=== PATIENT | female | born 1990 | race Caucasian/White ===

== ENCOUNTER 2017-08-19 23:00 | Emergency (ER) | payer OTHER ==
[~2017-08-19] VITALS: Ht 157.5 cm; Wt 52.2 kg
[2017-08-19 23:05] VITALS: BP 138/90
--- NOTE | 2017-08-19 23:10 | NUR ---
PATIENT AMBULATED TO ER BED 5.
--- NOTE | 2017-08-19 23:15 | NUR ---
PATIENT IS A 26 Y/O FEMALE WHO PRESENTS TO THE ED C/O HEADACHE. PT STATES THAT IT STARTED YESTERDAY AND TOOK A MOTRIN WITH NO RELIEF. PT REPORTS 10/10 ACHING FRONTAL HEADACHE PAIN THAT DOES NOT RADIATE. PT DENIES CP, SOB, REPORTS NAUSEA/VOMITING DENIES DIARRHEA. PT AAOX4, RR EVEN/UNLABORED. PT REPOSITIONED FOR COMFORT, BED IN LOWEST POSITION. ER MD DR. CROOKS NOTIFIED. WILL CONTINUE TO MONITOR.
[2017-08-19] MEDS ORDERED: NACL 0.9% 1,000 ML IV ONE (23:43)
[2017-08-19] MEDS ORDERED: KETOROLAC 30 MG/ML VIAL IVP ONE (23:45)
[2017-08-19] MEDS ORDERED: METOCLOPRAMIDE 10 MG/2 ML INJ VIAL IVP ONE (23:45)
[2017-08-19] MEDS ORDERED: diphenhydrAMINE 50 MG/ML VIAL IVP ONE (23:45)
[2017-08-19 23:48] LABS: APPEARANCE,URINE CLEAR (CLEAR); BILIRUBIN,URINE NEGATIVE (NEGATIVE); BLOOD, URINE NEGATIVE (NEGATIVE); COLOR,URINE YELLOW (YELLOW); LEUKOCYTE ESTERASE ,URINE 3+ (NEGATIVE); NITRITE, URINE NEGATIVE (NEGATIVE); PH,URINE 7.5 (5.0-9.0); UGLUCOSE NEGATIVE (NEGATIVE)
[2017-08-19 23:58] LABS: RBC,URINE 0-5 (RARE) /HPF (0-5); WBC,URINE 20-60 /HPF (0-5)
--- NOTE | 2017-08-20 00:30 | NUR ---
PT RESTING IN BED COMFORTABLY NO S/S OF DISTRESS NOTED. VSS
--- NOTE | 2017-08-20 01:34 | NUR ---
Patient discharged with v/s stable. Written and verbal after care instructions given and explained. Patient alert, oriented and verbalized understanding of instructions. Ambulatory with steady gait. All questions addressed prior to discharge. ID band removed. Patient advised to follow up with PMD. Rx of REGLAN 5MG AND FIORICET [id number] given. Patient educated on indication of medication including possible reaction and side effects. Opportunity to ask questions provided and answered.
[2017-08-20 01:35] VITALS: BP 118/72
== END 2017-08-20 01:34 | disposition home or self-care (01) ==
LOC: MED 23:00
DX: R51 Headache (principal); H53.8 Other visual disturbances; R11.2 Nausea with vomiting, unspecified; G43.909 Migraine, unspecified, not intractable, without status migrainosus; Z90.89 Acquired absence of other organs; Z88.0 Allergy status to penicillin
CPT/HCPCS: 81001; 81025; 87086; 96361; 96374; 96375; 99284; J1200; J1885; J2765; J7030

== ENCOUNTER 2017-10-22 01:40 | Emergency (ER) | payer OTHER ==
[~2017-10-22] VITALS: Ht 157.5 cm; Wt 54.2 kg
--- NOTE | 2017-10-22 01:57 | NUR ---
PT TAKEN TO BED 11
[2017-10-22 01:58] VITALS: BP 121/79
[2017-10-22] MEDS ORDERED: FIO PO (02:01)
[2017-10-22] MEDS ORDERED: MID5 PO (02:01)
[2017-10-22] MEDS ORDERED: RIZA10TA16 PO (02:01)
--- NOTE | 2017-10-22 02:01 | NUR ---
26/F presents to ED with complaints of headache for the past 3 days. Patient states "I have migraines." Patient has prescribed medications she states are not helping. Pt c/o left frontal 9/10 pain. Denies N/V. AOX4, clear speech. VSS. NAD noted. Pt appears comfortable, boyfriend with patient.
--- NOTE | 2017-10-22 02:07 | NUR ---
Patient being evaluated by physician at bedside.
--- NOTE | 2017-10-22 02:07 | NUR ---
Lucie siu in [facility] - 10/22/17 at [address] Tran evaluating patient at bedside.
[2017-10-22] MEDS ORDERED: PROCHLORPERAZINE 10 MG/2 ML VIAL IVP ONE (02:10)
[2017-10-22] MEDS ORDERED: diphenhydrAMINE 50 MG/ML VIAL IVP ONE (02:10)
[2017-10-22] MEDS ORDERED: NACL 0.9% 1,000 ML IV ONE (02:10)
--- NOTE | 2017-10-22 02:54 | NUR ---
Patient resting quietly and comfortably in bed. IV fluids infusing. Boyfriend at bedside. NAD noted. Lights dimmed in room. Warm blanket provided.
--- NOTE | 2017-10-22 03:06 | NUR ---
IV removed, catheter intact and site benign. Applied folded 4x4 gauze and tape to stop bleeding.
[2017-10-22 03:07] VITALS: BP 112/80
--- NOTE | 2017-10-22 03:07 | NUR ---
Patient discharged with v/s stable. Written and verbal after care instructions given and explained. Patient verbalized understanding. Ambulatory with steady gait. All questions addressed prior to discharge. Advised to follow up with PMD.
== END 2017-10-22 03:07 | disposition home or self-care (01) ==
LOC: MED 01:40
DX: G43.909 Migraine, unspecified, not intractable, without status migrainosus (principal); Z88.0 Allergy status to penicillin; Z79.899 Other long term (current) drug therapy
CPT/HCPCS: 81025; 96361; 96374; 96375; 99284; J0780; J1200; J7030

== ENCOUNTER 2020-06-21 01:00 | Emergency (ER) | payer OTHER ==
[~2020-06-21] VITALS: Ht 157.5 cm; Wt 63.5 kg
[~2020-06-21 01:00] MED LIST: FIO PO; MID5 PO; RIZA10TA16 PO
[2020-06-21 01:14] VITALS: BP 113/66
--- NOTE | 2020-06-21 01:43 | NUR ---
29 Y/O FEMALE PRESENTED TO ED C/O UPPER BACK PAIN X 1 DAY. PT DESCRIBES IT SHARP UPPER BACK PAIN THAT INCREASES UPON INSPIRATION. RR EVEN AND UNLABORED. OXYGEN 99% , BL LUNG SOUNDS CLEAR THROUGHOUT. PT HAD A VAGINAL X 5 DAYS AGO BUT STATES THERE WERE NO COMPLICATIONS BUT SHE DID RECEIVE AN EPIDURAL. PT DENIES ANY FEVER, BODY ACHES, CHILLS , N/V/D. PT RESTING IN BED, LOCKED AND IN LOWEST POSITION, HOB ELEVATED, SIDE RAIL X 1. VSS. NO ACUTE DISTRESS NOTED. PMH: DENIES AX: PCN Addendum: 06/21/20 at 0300 by [email or web address] Patient also complaining of non-radiating sharp chest pain x 1 day. VSS
--- NOTE | 2020-06-21 02:15 | NUR ---
ERMD at bedside assessing patient.
[2020-06-21] MEDS ORDERED: ACETAMINOPHEN 325 MG TAB PO ONE (02:25)
[2020-06-21] MEDS ORDERED: NACL 0.9% 1,000 ML IV ONE (02:30)
[2020-06-21 02:38] LABS: BASOPHILS % (AUTO) 0.2 % (0.0-2.0); EOSINOPHILS # (AUTO) 0.1 K/uL (0-0.4); EOSINOPHILS % (AUTO) 1.9 % (0.0-4.0); HEMATOCRIT 35.4 % (36-48); HEMOGLOBIN 11.8 g/dL (12.0-16.0); LYMPHOCYTES # (AUTO) 2.2 K/uL (2.5-16.5); MEAN CORPUSCULAR HEMOGLOBIN 28 pg (27-31); MEAN CORPUSCULAR HGB CONC 33 g/dL (33-37); MEAN CORPUSCULAR VOLUME 84.3 fL (80-94); MONOCYTES # (AUTO) 0.7 K/uL (0.8-1.0); MONOCYTES % (AUTO) 8.4 % (1.7-9.3); NEUTROPHILS # (AUTO) 4.8 K/uL (1.8-7.7); NEUTROPHILS % (AUTO) 61.5 % (42.2-75.2); PLATELET COUNT (AUTO) 278 K/uL (140-450); RED CELL DISTRIBUTION WIDTH 15.3 % (11.6-13.7); WHITE BLOOD COUNT (AUTO) 7.8 K/uL (4.8-10.8)
[2020-06-21 02:46] LABS: ANION GAP 11.1 (8-16); CARBON DIOXIDE 27.8 mmol/L (21-32); CREATININE 0.7 mg/dL (0.6-1.3); POTASSIUM 3.9 mmol/L (3.5-5.1)
--- NOTE | 2020-06-21 02:47 | NUR ---
EKG PERFORMED AT BEDSIDE. EKG READS SINUS RHYTHM @ 79
[2020-06-21 03:39] LABS: PROTHROMBIN TIME 9.2 secs (10.8-13.4)
--- NOTE | 2020-06-21 04:15 | NUR ---
PT OFF TO CT
--- NOTE | 2020-06-21 04:50 | NUR ---
Patient back from CT. Addendum: 06/21/20 at 0515 by [email or web address] audis
[2020-06-21 06:06] VITALS: BP 104/63
== END 2020-06-21 06:06 | disposition home or self-care (01) ==
LOC: MED 01:00
DX: R09.1 Pleurisy (principal); R07.89 Other chest pain; M54.6 Pain in thoracic spine; Z88.0 Allergy status to penicillin; Z79.899 Other long term (current) drug therapy
CPT/HCPCS: 36415; 71045; 71275; 80048; 84484; 85025; 85379; 85610; 85730; 93005; 96360; 99285; J7030; Q9967

== ENCOUNTER 2021-05-05 06:08 | Emergency (ER) | payer OTHER ==
[~2021-05-05] VITALS: Ht 157.5 cm; Wt 52.2 kg
[2021-05-05 06:12] VITALS: BP 104/75
--- NOTE | 2021-05-05 06:12 | NUR ---
"i woke up at 0330 and the room was spinning. i'm scared"VOMITING X 5 IN LAST 2 HOURS. PT IS , LMP 02/24/21
--- NOTE | 2021-05-05 06:15 | NUR ---
TO BED 5, AMBULATORY, FROM TRIAGE
[2021-05-05] MEDS ORDERED: ONDANSETRON 4 MG ODT PO ONE (06:30)
[2021-05-05] MEDS ORDERED: PYRIDOXINE 50 MG TAB PO ONE (06:40)
[2021-05-05] MEDS ORDERED: METOCLOPRAMIDE 10 MG TAB PO ONE (06:40)
--- NOTE | 2021-05-05 07:15 | NUR ---
MEDICATED ORDERED. NO FURTHER VOMITING NOTED
--- NOTE | 2021-05-05 07:53 | NUR ---
PATIENT PROVIDED W/ URINE CUP AT BEDSIDE, PATIENT WILL PROVIDE URINE SAMPLE AT THIS TIME.
--- NOTE | 2021-05-05 08:07 | NUR ---
URINE SPECIMEN COLLECTED AND DIPPED, RESULTS HANDED TO DR. CAPONE
--- NOTE | 2021-05-05 08:08 | NUR ---
DR CAPONE EVALUATING PATIENT AT BEDSIDE.
--- NOTE | 2021-05-05 08:10 | NUR ---
URINE SPECIMEN WALKED TO LAB.
--- NOTE | 2021-05-05 08:54 | NUR ---
PATIENT RESTING IN BED, VSS, RESPIRATIONS EVEN AND UNLABORED. NO SIGNS OF DISTRESS NOTED, WILL CONTINUE TO MONITOR.
[2021-05-05 09:37] LABS: APPEARANCE,URINE CLEAR (CLEAR); BILIRUBIN,URINE NEGATIVE (NEGATIVE); BLOOD, URINE NEGATIVE (NEGATIVE); COLOR,URINE YELLOW (YELLOW); LEUKOCYTE ESTERASE ,URINE 1+ (NEGATIVE); NITRITE, URINE NEGATIVE (NEGATIVE); UGLUCOSE NEGATIVE (NEGATIVE)
[2021-05-05 09:54] LABS: CALCIUM OXALATE CRYSTALS,UR None Seen /HPF (None Seen); COARSE GRANULAR CASTS,URINE None Seen /LPF (None Seen); FINE GRANULAR CASTS,URINE None Seen /LPF (None Seen); HYALINE CASTS, URINE None Seen /LPF (None Seen); OTHER CASTS, URINE None Seen /LPF (None Seen); OTHER CRYSTALS,URINE None Seen /HPF (None Seen); RBC,URINE 0-5 /HPF (0-5); RED BLOOD CELL CASTS,URINE None Seen /LPF (None Seen); TRICHOMONAS,URINE None Seen /HPF (None Seen); TRIPLE PHOSPHATE CRYSTAL,UR None Seen /HPF (None Seen); URIC ACID CRYSTALS,URINE None Seen /HPF (None Seen); URINE AMORPHOUS URATE None Seen /HPF (None Seen); WAXY CASTS,URINE None Seen /LPF (None Seen); YEAST,URINE None Seen /HPF (None Seen)
[2021-05-05 10:01] LABS: WBC,URINE 0-5 /HPF (0-5)
[2021-05-05] MEDS ORDERED: DOXY25TA61 PO (10:16)
[2021-05-05] MEDS ORDERED: PYRI-218 PO (10:16)
[2021-05-05] MEDS ORDERED: ONDA-188 SL (10:16)
[2021-05-05 10:37] VITALS: BP 104/56
--- NOTE | 2021-05-05 10:37 | NUR ---
Patient discharged with v/s stable. Written and verbal after care instructions ABOUT MORNING SICKNESS given and explained. Patient alert, oriented and verbalized understanding of instructions. Ambulatory with steady gait. All questions addressed prior to discharge. ID band removed. Patient advised to follow up with PMD. Rx of UNISOM, ZOFRAN, VITAMIN B-6 given.
--- NOTE | 2021-05-05 10:38 | NUR ---
Chart checked and completed. The patient's care was reviewed and supervised by Bere Abrams RN.
== END 2021-05-05 10:37 | disposition home or self-care (01) ==
LOC: MED 06:08
DX: O21.8 Other vomiting complicating pregnancy (principal); O26.891 Other specified pregnancy related conditions, first trimester; R42 Dizziness and giddiness; Z88.0 Allergy status to penicillin; Z79.899 Other long term (current) drug therapy; Z3A.10 10 weeks gestation of pregnancy
CPT/HCPCS: 81001; 81025; 87086; 99284; J8597; Q0162